=== PATIENT | female | born 1970 | race African-American/Black ===

== ENCOUNTER 2019-04-17 17:56 | Emergency (ER) | payer MEDICAID ==
[~2019-04-17] VITALS: Ht 152.4 cm; Wt 75.0 kg
[~2019-04-17 17:56] MED LIST: BP MEDICATION
[2019-04-17 18:10] VITALS: BP 182/112
== END 2019-04-17 19:41 | disposition home or self-care (01) ==
LOC: ED 19:28
DX: Z48.01 Encounter for change or removal of surgical wound dressing (principal)
CPT/HCPCS: 99281

== ENCOUNTER 2019-04-21 13:51 | Outpatient (CLI) | payer MEDICAID | END 2019-04-21 23:59 | disposition home or self-care (01) | LOC: WOUND 13:51 | PROVIDERS: ATTEND Nurse Practitioner Family | DX: L89.313 Pressure ulcer of right buttock, stage 3 (principal); I10 Essential (primary) hypertension; K21.9 Gastro-esophageal reflux disease without esophagitis; F17.210 Nicotine dependence, cigarettes, uncomplicated; Q05.7 Lumbar spina bifida without hydrocephalus | CPT/HCPCS: 97597; 99215 ==

== ENCOUNTER 2019-04-28 13:45 | Outpatient (CLI) | payer MEDICAID | END 2019-04-28 23:59 | disposition home or self-care (01) | LOC: WOUND 13:45 | PROVIDERS: ATTEND Nurse Practitioner Family | DX: L89.313 Pressure ulcer of right buttock, stage 3 (principal); Q05.7 Lumbar spina bifida without hydrocephalus; I10 Essential (primary) hypertension; K21.9 Gastro-esophageal reflux disease without esophagitis; F17.210 Nicotine dependence, cigarettes, uncomplicated | CPT/HCPCS: 97597 ==

== ENCOUNTER 2019-05-05 14:07 | Outpatient (CLI) | payer MEDICAID | END 2019-05-05 23:59 | disposition home or self-care (01) | LOC: WOUND 14:07 | PROVIDERS: ATTEND Nurse Practitioner Family | DX: L89.313 Pressure ulcer of right buttock, stage 3 (principal); I10 Essential (primary) hypertension; K21.9 Gastro-esophageal reflux disease without esophagitis; Q05.7 Lumbar spina bifida without hydrocephalus; F17.210 Nicotine dependence, cigarettes, uncomplicated | CPT/HCPCS: 97597 ==

== ENCOUNTER → 2019-05-12 | Outpatient (CLI) | payer MEDICAID | END | disposition home or self-care (01) | LOC: WOUND 15:13 | PROVIDERS: ATTEND Nurse Practitioner Family | DX: L89.313 Pressure ulcer of right buttock, stage 3 (principal); I10 Essential (primary) hypertension; K21.9 Gastro-esophageal reflux disease without esophagitis; Q05.7 Lumbar spina bifida without hydrocephalus; F17.210 Nicotine dependence, cigarettes, uncomplicated | CPT/HCPCS: 97597 ==

== ENCOUNTER → 2019-05-19 | Outpatient (CLI) | payer MEDICAID | END | disposition home or self-care (01) | LOC: WOUND 15:10 | PROVIDERS: ATTEND Nurse Practitioner Family | DX: L89.313 Pressure ulcer of right buttock, stage 3 (principal); I10 Essential (primary) hypertension; K21.9 Gastro-esophageal reflux disease without esophagitis; F17.210 Nicotine dependence, cigarettes, uncomplicated; Q05.7 Lumbar spina bifida without hydrocephalus | CPT/HCPCS: 97597 ==

== ENCOUNTER → 2019-05-26 | Outpatient (CLI) | payer MEDICAID | END | disposition home or self-care (01) | LOC: WOUND 14:16 | PROVIDERS: ATTEND Nurse Practitioner Family | DX: L89.313 Pressure ulcer of right buttock, stage 3 (principal); I10 Essential (primary) hypertension; K21.9 Gastro-esophageal reflux disease without esophagitis; F17.210 Nicotine dependence, cigarettes, uncomplicated; Q05.7 Lumbar spina bifida without hydrocephalus | CPT/HCPCS: 97597 ==

== ENCOUNTER → 2019-06-02 | Outpatient (CLI) | payer MEDICAID | END | disposition home or self-care (01) | LOC: WOUND 14:05 | PROVIDERS: ATTEND Nurse Practitioner Family | DX: L89.313 Pressure ulcer of right buttock, stage 3 (principal); I10 Essential (primary) hypertension; K21.9 Gastro-esophageal reflux disease without esophagitis; Q05.7 Lumbar spina bifida without hydrocephalus; F17.210 Nicotine dependence, cigarettes, uncomplicated | CPT/HCPCS: 97597 ==

== ENCOUNTER → 2019-06-08 | Outpatient (CLI) | payer MEDICAID | END | disposition home or self-care (01) | LOC: WOUND 13:25 | PROVIDERS: ATTEND Internal Medicine Cardiovascular Disease | DX: L89.313 Pressure ulcer of right buttock, stage 3 (principal); I10 Essential (primary) hypertension; K21.9 Gastro-esophageal reflux disease without esophagitis; Q05.7 Lumbar spina bifida without hydrocephalus; F17.210 Nicotine dependence, cigarettes, uncomplicated | CPT/HCPCS: 99214 ==

== ENCOUNTER → 2019-06-15 | Outpatient (CLI) | payer MEDICAID | END | disposition home or self-care (01) | LOC: WOUND 10:02 | PROVIDERS: ATTEND Internal Medicine | DX: L89.313 Pressure ulcer of right buttock, stage 3 (principal); Q05.7 Lumbar spina bifida without hydrocephalus; I10 Essential (primary) hypertension; K21.9 Gastro-esophageal reflux disease without esophagitis; F17.210 Nicotine dependence, cigarettes, uncomplicated | CPT/HCPCS: 99213 ==

== ENCOUNTER → 2019-06-23 | Outpatient (CLI) | payer MEDICAID | END | disposition home or self-care (01) | LOC: WOUND 14:03 | PROVIDERS: ATTEND Nurse Practitioner Family | DX: L89.313 Pressure ulcer of right buttock, stage 3 (principal); L84 Corns and callosities; L89.623 Pressure ulcer of left heel, stage 3; Q05.7 Lumbar spina bifida without hydrocephalus; I10 Essential (primary) hypertension; K21.9 Gastro-esophageal reflux disease without esophagitis; F17.210 Nicotine dependence, cigarettes, uncomplicated | CPT/HCPCS: 11042; 97597 ==

== ENCOUNTER → 2019-06-26 | Outpatient (CLI) | payer MEDICAID | END | disposition home or self-care (01) | LOC: WOUND 14:21 | PROVIDERS: ATTEND Family Medicine | DX: L89.313 Pressure ulcer of right buttock, stage 3 (principal); L97.521 Non-pressure chronic ulcer of other part of left foot limited to breakdown of skin; L84 Corns and callosities; L89.623 Pressure ulcer of left heel, stage 3; Q05.7 Lumbar spina bifida without hydrocephalus; I10 Essential (primary) hypertension; K21.9 Gastro-esophageal reflux disease without esophagitis; F17.210 Nicotine dependence, cigarettes, uncomplicated | CPT/HCPCS: 99214 ==

== ENCOUNTER 2019-06-30 13:21 | Outpatient (CLI) | payer MEDICAID | END 2019-06-30 23:59 | disposition home or self-care (01) | LOC: WOUND 13:21 | PROVIDERS: ATTEND Nurse Practitioner Family | DX: L97.521 Non-pressure chronic ulcer of other part of left foot limited to breakdown of skin (principal); L84 Corns and callosities; Q05.7 Lumbar spina bifida without hydrocephalus; L89.313 Pressure ulcer of right buttock, stage 3; L89.603 Pressure ulcer of unspecified heel, stage 3; I10 Essential (primary) hypertension; K21.9 Gastro-esophageal reflux disease without esophagitis; F17.210 Nicotine dependence, cigarettes, uncomplicated | CPT/HCPCS: 97597 ==

== ENCOUNTER 2019-07-03 13:41 | Outpatient (CLI) | payer MEDICAID | END 2019-07-03 23:59 | disposition home or self-care (01) | LOC: WOUND 13:41 | PROVIDERS: ATTEND Family Medicine | DX: L97.521 Non-pressure chronic ulcer of other part of left foot limited to breakdown of skin (principal); L84 Corns and callosities; Q05.7 Lumbar spina bifida without hydrocephalus; L89.313 Pressure ulcer of right buttock, stage 3; L89.603 Pressure ulcer of unspecified heel, stage 3; I10 Essential (primary) hypertension; K21.9 Gastro-esophageal reflux disease without esophagitis; F17.210 Nicotine dependence, cigarettes, uncomplicated | CPT/HCPCS: 99214 ==

== ENCOUNTER 2019-07-07 13:54 | Outpatient (CLI) | payer MEDICAID | END 2019-07-07 23:59 | disposition home or self-care (01) | LOC: WOUND 13:54 | PROVIDERS: ATTEND Nurse Practitioner Family | DX: L97.522 Non-pressure chronic ulcer of other part of left foot with fat layer exposed (principal); L84 Corns and callosities; Q05.7 Lumbar spina bifida without hydrocephalus; L89.313 Pressure ulcer of right buttock, stage 3; L89.603 Pressure ulcer of unspecified heel, stage 3; I10 Essential (primary) hypertension; K21.9 Gastro-esophageal reflux disease without esophagitis; F17.210 Nicotine dependence, cigarettes, uncomplicated | CPT/HCPCS: 97597 ==

== ENCOUNTER → 2019-07-21 | Outpatient (CLI) | payer MEDICAID | END | disposition home or self-care (01) | LOC: WOUND 12:51 | PROVIDERS: ATTEND Nurse Practitioner Family | DX: L97.521 Non-pressure chronic ulcer of other part of left foot limited to breakdown of skin (principal); L89.623 Pressure ulcer of left heel, stage 3; L84 Corns and callosities; Q05.7 Lumbar spina bifida without hydrocephalus; I10 Essential (primary) hypertension; K21.9 Gastro-esophageal reflux disease without esophagitis; F17.210 Nicotine dependence, cigarettes, uncomplicated | CPT/HCPCS: 97597 ==

== ENCOUNTER → 2019-08-04 | Outpatient (CLI) | payer MEDICAID | END | disposition home or self-care (01) | LOC: WOUND 13:01 | PROVIDERS: ATTEND Nurse Practitioner Family | DX: L97.521 Non-pressure chronic ulcer of other part of left foot limited to breakdown of skin (principal); L89.623 Pressure ulcer of left heel, stage 3; L84 Corns and callosities; Q05.7 Lumbar spina bifida without hydrocephalus; I10 Essential (primary) hypertension; K21.9 Gastro-esophageal reflux disease without esophagitis; F17.210 Nicotine dependence, cigarettes, uncomplicated | CPT/HCPCS: 97597 ==

== ENCOUNTER → 2019-08-11 | Outpatient (CLI) | payer MEDICAID | END | disposition home or self-care (01) | LOC: WOUND 14:10 | PROVIDERS: ATTEND Nurse Practitioner Family | DX: L97.521 Non-pressure chronic ulcer of other part of left foot limited to breakdown of skin (principal); L89.623 Pressure ulcer of left heel, stage 3; L84 Corns and callosities; Q05.7 Lumbar spina bifida without hydrocephalus; I10 Essential (primary) hypertension; K21.9 Gastro-esophageal reflux disease without esophagitis; F17.210 Nicotine dependence, cigarettes, uncomplicated | CPT/HCPCS: 97597 ==

== ENCOUNTER 2019-08-25 13:11 | Outpatient (CLI) | payer MEDICAID | END 2019-08-25 23:59 | disposition home or self-care (01) | LOC: WOUND 13:11 | PROVIDERS: ATTEND Nurse Practitioner Family | DX: L97.521 Non-pressure chronic ulcer of other part of left foot limited to breakdown of skin (principal); L89.623 Pressure ulcer of left heel, stage 3; L84 Corns and callosities; Q05.7 Lumbar spina bifida without hydrocephalus; I10 Essential (primary) hypertension; K21.9 Gastro-esophageal reflux disease without esophagitis; F17.210 Nicotine dependence, cigarettes, uncomplicated | CPT/HCPCS: 97597 ==

== ENCOUNTER → 2019-09-08 | Outpatient (CLI) | payer MEDICAID | END | disposition home or self-care (01) | LOC: WOUND 10:48 | PROVIDERS: ATTEND Nurse Practitioner Family | DX: L97.521 Non-pressure chronic ulcer of other part of left foot limited to breakdown of skin (principal); L89.623 Pressure ulcer of left heel, stage 3; L84 Corns and callosities; Q05.7 Lumbar spina bifida without hydrocephalus; I10 Essential (primary) hypertension; K21.9 Gastro-esophageal reflux disease without esophagitis; F17.210 Nicotine dependence, cigarettes, uncomplicated | CPT/HCPCS: 97597 ==

== ENCOUNTER → 2019-09-15 | Outpatient (CLI) | payer MEDICAID | END | disposition home or self-care (01) | LOC: WOUND 10:43 | PROVIDERS: ATTEND Nurse Practitioner Family | DX: L97.522 Non-pressure chronic ulcer of other part of left foot with fat layer exposed (principal); L89.623 Pressure ulcer of left heel, stage 3; L84 Corns and callosities; Q05.7 Lumbar spina bifida without hydrocephalus; I10 Essential (primary) hypertension; K21.9 Gastro-esophageal reflux disease without esophagitis; F17.210 Nicotine dependence, cigarettes, uncomplicated | CPT/HCPCS: 11042 ==

== ENCOUNTER → 2019-09-29 | Outpatient (CLI) | payer MEDICAID | END | disposition home or self-care (01) | LOC: WOUND 14:00 | PROVIDERS: ATTEND Nurse Practitioner Family | DX: L97.522 Non-pressure chronic ulcer of other part of left foot with fat layer exposed (principal); L89.623 Pressure ulcer of left heel, stage 3; L84 Corns and callosities; Q05.7 Lumbar spina bifida without hydrocephalus; I10 Essential (primary) hypertension; K21.9 Gastro-esophageal reflux disease without esophagitis; F17.210 Nicotine dependence, cigarettes, uncomplicated | CPT/HCPCS: 11042 ==

== ENCOUNTER → 2019-10-06 | Outpatient (CLI) | payer MEDICAID | END | disposition home or self-care (01) | LOC: WOUND 10:43 | PROVIDERS: ATTEND Nurse Practitioner Family | DX: L97.522 Non-pressure chronic ulcer of other part of left foot with fat layer exposed (principal); L89.623 Pressure ulcer of left heel, stage 3; L84 Corns and callosities; Q05.7 Lumbar spina bifida without hydrocephalus; I10 Essential (primary) hypertension; K21.9 Gastro-esophageal reflux disease without esophagitis; F17.210 Nicotine dependence, cigarettes, uncomplicated | CPT/HCPCS: 97597 ==

== ENCOUNTER → 2019-10-27 | Outpatient (CLI) | payer MEDICAID | END | disposition home or self-care (01) | LOC: WOUND 13:10 | PROVIDERS: ATTEND Nurse Practitioner Family | DX: L97.522 Non-pressure chronic ulcer of other part of left foot with fat layer exposed (principal); L89.623 Pressure ulcer of left heel, stage 3; L84 Corns and callosities; Q05.7 Lumbar spina bifida without hydrocephalus; I10 Essential (primary) hypertension; K21.9 Gastro-esophageal reflux disease without esophagitis; F17.210 Nicotine dependence, cigarettes, uncomplicated | CPT/HCPCS: 97597 ==

== ENCOUNTER → 2019-11-10 | Outpatient (CLI) | payer MEDICAID | END | disposition home or self-care (01) | LOC: WOUND 10:31 | PROVIDERS: ATTEND Nurse Practitioner Family | DX: L97.522 Non-pressure chronic ulcer of other part of left foot with fat layer exposed (principal); L89.623 Pressure ulcer of left heel, stage 3; L84 Corns and callosities; Q05.7 Lumbar spina bifida without hydrocephalus; I10 Essential (primary) hypertension; K21.9 Gastro-esophageal reflux disease without esophagitis; F17.210 Nicotine dependence, cigarettes, uncomplicated | CPT/HCPCS: 11042 ==

== ENCOUNTER 2019-12-01 10:00 | Outpatient (CLI) | payer MEDICAID | END 2019-12-01 23:59 | disposition home or self-care (01) | LOC: WOUND 10:00 | PROVIDERS: ATTEND Nurse Practitioner Family | DX: L97.522 Non-pressure chronic ulcer of other part of left foot with fat layer exposed (principal); L89.623 Pressure ulcer of left heel, stage 3; L84 Corns and callosities; Q05.7 Lumbar spina bifida without hydrocephalus; I10 Essential (primary) hypertension; K21.9 Gastro-esophageal reflux disease without esophagitis; F17.210 Nicotine dependence, cigarettes, uncomplicated | CPT/HCPCS: 11042 ==

== ENCOUNTER 2019-12-22 10:52 | Outpatient (CLI) | payer MEDICAID | END 2019-12-22 23:59 | disposition home or self-care (01) | LOC: WOUND 10:52 | PROVIDERS: ATTEND Nurse Practitioner Family | DX: L97.522 Non-pressure chronic ulcer of other part of left foot with fat layer exposed (principal); L89.623 Pressure ulcer of left heel, stage 3; L84 Corns and callosities; Q05.7 Lumbar spina bifida without hydrocephalus; I10 Essential (primary) hypertension; K21.9 Gastro-esophageal reflux disease without esophagitis; F17.210 Nicotine dependence, cigarettes, uncomplicated | CPT/HCPCS: 97597 ==

== ENCOUNTER → 2020-01-05 | Outpatient (CLI) | payer MEDICAID | END | disposition home or self-care (01) | LOC: WOUND 09:00 | PROVIDERS: ATTEND Internal Medicine Infectious Disease | DX: L97.522 Non-pressure chronic ulcer of other part of left foot with fat layer exposed (principal); L89.623 Pressure ulcer of left heel, stage 3; L89.313 Pressure ulcer of right buttock, stage 3; L84 Corns and callosities; Q05.7 Lumbar spina bifida without hydrocephalus; I10 Essential (primary) hypertension; K21.9 Gastro-esophageal reflux disease without esophagitis; F17.210 Nicotine dependence, cigarettes, uncomplicated; R26.9 Unspecified abnormalities of gait and mobility | CPT/HCPCS: 97597 ==

== ENCOUNTER 2020-01-19 09:46 | Outpatient (CLI) | payer MEDICAID | END 2020-01-19 23:59 | disposition home or self-care (01) | LOC: WOUND 09:46 | PROVIDERS: ATTEND Nurse Practitioner Family | DX: L97.522 Non-pressure chronic ulcer of other part of left foot with fat layer exposed (principal); L89.313 Pressure ulcer of right buttock, stage 3; L89.623 Pressure ulcer of left heel, stage 3; L89.216 Pressure-induced deep tissue damage of right hip; L84 Corns and callosities; Q05.7 Lumbar spina bifida without hydrocephalus; I10 Essential (primary) hypertension; K21.9 Gastro-esophageal reflux disease without esophagitis; F17.210 Nicotine dependence, cigarettes, uncomplicated; R26.9 Unspecified abnormalities of gait and mobility | CPT/HCPCS: 99214 ==

== ENCOUNTER → 2020-01-26 | Outpatient (CLI) | payer MEDICAID | END | disposition home or self-care (01) | LOC: WOUND 10:31 | PROVIDERS: ATTEND Nurse Practitioner Family | DX: L97.522 Non-pressure chronic ulcer of other part of left foot with fat layer exposed (principal); L89.623 Pressure ulcer of left heel, stage 3; G62.9 Polyneuropathy, unspecified; Q05.7 Lumbar spina bifida without hydrocephalus; L84 Corns and callosities; I10 Essential (primary) hypertension; K21.9 Gastro-esophageal reflux disease without esophagitis; F17.210 Nicotine dependence, cigarettes, uncomplicated | CPT/HCPCS: 97597 ==

== ENCOUNTER 2020-02-02 09:45 | Outpatient (CLI) | payer MEDICAID | END 2020-02-02 23:59 | disposition home or self-care (01) | LOC: WOUND 09:45 | PROVIDERS: ATTEND Surgery | DX: L97.522 Non-pressure chronic ulcer of other part of left foot with fat layer exposed (principal); L89.623 Pressure ulcer of left heel, stage 3; G62.9 Polyneuropathy, unspecified; Q05.7 Lumbar spina bifida without hydrocephalus; L84 Corns and callosities; I10 Essential (primary) hypertension; K21.9 Gastro-esophageal reflux disease without esophagitis; F17.210 Nicotine dependence, cigarettes, uncomplicated | CPT/HCPCS: 97597 ==

== ENCOUNTER → 2020-02-16 | Outpatient (CLI) | payer MEDICAID | END | disposition home or self-care (01) | LOC: WOUND 10:41 | PROVIDERS: ATTEND Internal Medicine Infectious Disease | DX: L97.522 Non-pressure chronic ulcer of other part of left foot with fat layer exposed (principal); L89.623 Pressure ulcer of left heel, stage 3; G62.9 Polyneuropathy, unspecified; Q05.7 Lumbar spina bifida without hydrocephalus; L84 Corns and callosities; I10 Essential (primary) hypertension; K21.9 Gastro-esophageal reflux disease without esophagitis; F17.210 Nicotine dependence, cigarettes, uncomplicated | CPT/HCPCS: 97597 ==

== ENCOUNTER → 2020-02-23 | Outpatient (CLI) | payer MEDICAID | END | disposition home or self-care (01) | LOC: WOUND 08:37 | PROVIDERS: ATTEND Nurse Practitioner Family | DX: L97.522 Non-pressure chronic ulcer of other part of left foot with fat layer exposed (principal); L89.623 Pressure ulcer of left heel, stage 3; G62.9 Polyneuropathy, unspecified; Q05.7 Lumbar spina bifida without hydrocephalus; L84 Corns and callosities; I10 Essential (primary) hypertension; K21.9 Gastro-esophageal reflux disease without esophagitis; F17.210 Nicotine dependence, cigarettes, uncomplicated | CPT/HCPCS: 97597 ==

== ENCOUNTER → 2020-02-23 | Outpatient (CLI) | payer MEDICAID | END | disposition home or self-care (01) | LOC: CFH 09:57 | PROVIDERS: ATTEND Surgery | DX: M19.072 Primary osteoarthritis, left ankle and foot (principal); M20.12 Hallux valgus (acquired), left foot; M86.072 Acute hematogenous osteomyelitis, left ankle and foot ==

== ENCOUNTER → 2020-03-01 | Outpatient (CLI) | payer MEDICAID | END | disposition home or self-care (01) | LOC: WOUND 10:25 | PROVIDERS: ATTEND Nurse Practitioner Family | DX: L97.522 Non-pressure chronic ulcer of other part of left foot with fat layer exposed (principal); L89.623 Pressure ulcer of left heel, stage 3; G62.9 Polyneuropathy, unspecified; Q05.7 Lumbar spina bifida without hydrocephalus; L84 Corns and callosities; I10 Essential (primary) hypertension; K21.9 Gastro-esophageal reflux disease without esophagitis; M19.072 Primary osteoarthritis, left ankle and foot; F17.210 Nicotine dependence, cigarettes, uncomplicated | CPT/HCPCS: 97597 ==

== ENCOUNTER → 2020-03-15 | Outpatient (CLI) | payer MEDICAID | END | disposition home or self-care (01) | LOC: WOUND 09:16 | PROVIDERS: ATTEND Nurse Practitioner Family | DX: L97.522 Non-pressure chronic ulcer of other part of left foot with fat layer exposed (principal); L89.623 Pressure ulcer of left heel, stage 3; G62.9 Polyneuropathy, unspecified; Q05.7 Lumbar spina bifida without hydrocephalus; L84 Corns and callosities; I10 Essential (primary) hypertension; K21.9 Gastro-esophageal reflux disease without esophagitis; M19.072 Primary osteoarthritis, left ankle and foot; R26.9 Unspecified abnormalities of gait and mobility; M86.072 Acute hematogenous osteomyelitis, left ankle and foot; F17.210 Nicotine dependence, cigarettes, uncomplicated | CPT/HCPCS: 97597 ==

== ENCOUNTER → 2020-03-22 | Outpatient (CLI) | payer MEDICAID | END | disposition home or self-care (01) | LOC: WOUND 12:55 | PROVIDERS: ATTEND Nurse Practitioner Family | DX: L97.528 Non-pressure chronic ulcer of other part of left foot with other specified severity (principal); G62.9 Polyneuropathy, unspecified; Q05.7 Lumbar spina bifida without hydrocephalus; L84 Corns and callosities; I10 Essential (primary) hypertension; K21.9 Gastro-esophageal reflux disease without esophagitis; M19.072 Primary osteoarthritis, left ankle and foot; R26.9 Unspecified abnormalities of gait and mobility; M86.072 Acute hematogenous osteomyelitis, left ankle and foot; F17.210 Nicotine dependence, cigarettes, uncomplicated | CPT/HCPCS: 99213 ==